=== PATIENT | female | born 2005 | race Hispanic/Latino ===

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

== ENCOUNTER 2024-11-24 15:55 | Emergency (ER) | payer SELFPAY ==
[2024-11-24 16:31] LABS: #Basophils 0.06 10x3/uL (0.0-0.2); #Eosinophils 0.36 10x3/uL (0.0-0.5); #Monocytes 0.57 10x3/uL (0.0-1.1); #Neutrophils 6.22 10x3/uL (1.5-8.4); %Basophils 0.6 % (0.0-2.0); %Eosinophils 3.6 % (0.0-6.0); %Lymphocytes 26.7 % (18.0-47.0); %Monocytes 5.8 % (0.0-10.0); %Neutrophils 62.9 % (40.0-75.0); Hematocrit 44.2 % (34.9-44.5); Hemoglobin 15.1 g/dL (12.0-15.5); Mean Corpuscular Hemoglobin 28.2 pg (27.0-33.0); Mean Corpuscular Volume 82.6 fL (81.6-98.3); Platelet Count 311 10x3/uL (150-450); Red Blood Cell (RBC) Count 5.35 10x6/uL (3.90-5.03); White Blood Cell (WBC) Count 9.89 10x3/uL (3.5-10.5)
[2024-11-24 16:46] LABS: BHCG - Serum Negative (NEGATIVE); Pregs Control Background? CLEAR/WHITE (CLR/WHITE); Pregs Control Bar Appear? YES (CONTROL BAR)
[2024-11-24 16:50] LABS: Troponin I 0.018 ng/mL (< 0.028)
[2024-11-24 16:56] LABS: ALT (SGPT) 142 U/L (Less than 34); AST (SGOT) 84 U/L (11-34); Albumin 4.1 g/dL (3.1-4.5); Alkaline Phosphatase 64 U/L (40-110); Anion Gap 19 mmol/L (10-20); BUN (Urea Nitrogen) 9 mg/dL (7.0-18.7); Bilirubin, Total 0.7 mg/dL (0.3-1.2); Calc. Creatinine Clearance 0 mL/min (70-130); Calcium 8.9 mg/dL (7.8-10.44); Carbon Dioxide 21 mmol/L (22-29); Chloride 103 mmol/L (98-107); Globulin 4.1 g/dL (2.4-3.5); Glucose 91 mg/dL (70-105); Potassium 4.2 mmol/L (3.5-5.1); Sodium 139 mmol/L (136-145)
[2024-11-24] MEDS ORDERED: Ketorolac Tromethamine 30 MG (1 mL) VIAL ONE (17:07)
== END 2024-11-24 18:22 | disposition home or self-care (01) ==
LOC: CSHERS 15:55
DX: R07.89 Other chest pain (principal)
CPT/HCPCS: 71045; 80053; 84484; 84703; 85025; 85379; 93005; 96374; J1885